=== PATIENT | female | born 1955 | race Caucasian/White ===

== ENCOUNTER → 2016-09-28 13:31 | Outpatient (CLI) | payer BC ==
[~2016-09-28 13:31] MED LIST: DILAUDID2 MG PO; IBUPROFEN200 MG PO; OMEPRAZOLE20 M1 PO; SYNTHROID88 MCG PO; ULTRAM50 MG PO; ZOCOR20 MG PO; ZOFRAN4 MG PO
[2016-10-22 08:37] VITALS: BMI 29.7
== END | disposition home or self-care (01) ==
LOC: D.US 13:31
DX: E06.3 Autoimmune thyroiditis (principal)

== ENCOUNTER → 2016-10-09 09:58 | Outpatient (CLI) | payer BC ==
[2016-10-22 08:37] VITALS: BMI 29.7
== END | disposition home or self-care (01) ==
LOC: D.US 09:58
DX: R10.9 Unspecified abdominal pain (principal)

== ENCOUNTER 2016-10-22 05:21 | Day surgery (SDC) | payer BC ==
[2016-10-20 10:13] LABS: HEMATOCRIT 41.1 % (36.0-48.0); HEMOGLOBIN 14.2 g/dL (12-16); MCH 32.1 pg (26.0-34.0); MCHC 34.5 g/dL (31.0-37.0); MEAN PLATELET VOLUME 9.2 fL (7.4-10.4); RBC 4.42 10x6/uL (4.00-5.40); RDW 12.3 % (11.5-14.5); WBC 5.7 10x3/uL (4.8-10.8)
[~2016-10-22] VITALS: Ht 162.6 cm; Wt 78.5 kg
[~2016-10-22 05:21] MED LIST changes: -DILAUDID2 MG PO; -ZOFRAN4 MG PO
[2016-10-22] MEDS ORDERED: ZOFRAN4 MG PO (08:36)
[2016-10-22 08:37] VITALS: BP 126/76; Ht 162.6 cm; Wt 78.5 kg
[2016-10-22] MEDS ORDERED: DILAUDID2 MG PO (11:35)
--- NOTE | 2016-10-22 14:56 | NUR ---
1400 IV DC WITH CATHER TIP INTACT
--- NOTE | 2016-10-26 11:07 | OP ---
PATIENT NAME: SUMA BLUNT MEDICAL RECORD: [id number] :57 LOCATION:[facility] ADMISSION DATE: SURGEON: DALLAS ORTA, TERESA PACE DATE OF OPERATION: 10/22/2016 Orthopedic Surgery Operative Note PREOPERATIVE DIAGNOSIS: Rotator cuff tear of the right shoulder with impingement syndrome, acromioclavicular arthritis. POSTOPERATIVE DIAGNOSES: Rotator cuff tear of the right shoulder with impingement syndrome, acromioclavicular arthritis, plus adhesive capsulitis. PROCEDURES: 1. Arthroscopic rotator cuff repair. 2. Arthroscopic distal clavicle excision -- 1 cm through separate incision. 3. Arthroscopic subacromial decompression with acromioplasty and bursectomy. 4. Right shoulder manipulation. SURGEON: Teresa Haynes MD. ANESTHESIA: General. INTRAOPERATIVE COMPLICATIONS: None. SUMMARY OF PATHOLOGIC FINDINGS: The patient had severe adhesive capsulitis, full thickness rotator cuff tear, impingement syndrome, acromioclavicular arthritis. OPERATIVE SUMMARY IN DETAIL: After obtaining the appropriate preoperative orthopedic surgery consent as well as anesthetic consultation was taken to the operating room and placed on the operating table in supine position. After general laryngeal mask was administered, the patient was placed in a left lateral decubitus position. All pressure points were well padded to include down leg peroneal pad as well as axillary roll. The patient was held firmly to the operating table using the vacuum pack suction system. The right upper extremity was prepped and draped in a routine sterile fashion. At this point, examination under anesthesia showed the patient did have significant adhesive capsulitis. For this reason, the scapula was stabilized. The shoulder was manipulated first in abduction followed by external rotation, internal rotation, flexion and extension. Having completed this, the arm was held in the Arthrex traction boom at 30 degrees of forward flexion, 30 degrees of abduction with 10 pounds of traction laterally. Arthroscopy was established in the glenohumeral joint from a posterior portal. Anterior portal was established in the anterior safe interval. Diagnostic arthroscopy of the glenohumeral joint showed the patient did have some labral tearing. Obviously, there was a post-manipulation bleeding. This was irrigated. Rotator cuff tearing was noted. Transrotator cuff portal was created to debride the rotator cuff and to begin to decorticate the footprint of the supraspinatus tendon. Having completed this, attention was turned to the subacromial space. While in the subacromial space, a polyp tissue ablation system was utilized to denude the undersurface of the acromion of all soft tissue elements. A 5-0 barrel bur was used to perform acromioplasty at the level of acromioclavicular joint. Through an arthroscopic anterior portal, the 5-0 barrel bur was used to perform a distal clavicle excision to debride 1 cm of the distal clavicle as it had eburnated arthritis on it. Attention was then OPERATIVE REPORT [id number] SUMA BLUNT returned to the rotator cuff. The area rotator cuff reapproximation was further decorticated. A single inverted #2 FiberTape was passed and anchored laterally using a 5.5 SwiveLock from Arthrex. Having completed this, arthroscopy portals were closed in routine interrupted fashion using 4-0 Prolene. Sterile dressings were applied. The patient was awakened, taken to recovery in stable condition. All final needle and sponge counts were correct. TRANSINT:[id number] Voice Confirmation ID: [id number] DOCUMENT ID: [id number] DALLAS ORTA, TERESA PACE at 1107 CC: [id number] DICTATION DATE: 10/22/16 164 PUNCH MACHINE HAND: 10/22/162037 [facility] 10/22/16 [address] [place] [address]
== END 2016-10-22 14:30 | disposition home or self-care (01) ==
LOC: D.OPS 05:21 → D.PAN 12:15 → D.OPS 12:15
PROVIDERS: Anesthesiology
DX: M75.121 Complete rotator cuff tear or rupture of right shoulder, not specified as traumatic (principal); M75.41 Impingement syndrome of right shoulder; M13.811 Other specified arthritis, right shoulder; M75.01 Adhesive capsulitis of right shoulder

== ENCOUNTER → 2016-11-30 16:34 | Outpatient (CLI) | payer BC ==
[2016-10-22 08:37] VITALS: BMI 29.7
[~2016-11-30 16:34] MED LIST changes: +DILAUDID2 MG PO; +ZOFRAN4 MG PO
== END | disposition home or self-care (01) ==
LOC: D.MAMMO 11-02 15:30
DX: Z12.31 Encounter for screening mammogram for malignant neoplasm of breast (principal)

== ENCOUNTER 2017-01-04 11:06 | Day surgery (SDC) | payer BC ==
[~2017-01-04] VITALS: Ht 162.6 cm; Wt 74.8 kg
[~2017-01-04 11:06] MED LIST changes: +NALFON400 MG PO; +SYNTHROID112 MCG PO; -SYNTHROID88 MCG PO
[2017-01-04 12:12] VITALS: Ht 162.6 cm; Wt 74.8 kg
[2017-01-04 12:20] LABS: HEMATOCRIT 40.8 % (36.0-48.0); HEMOGLOBIN 13.7 g/dL (12-16); MCH 30.8 pg (26.0-34.0); MCHC 33.6 g/dL (31.0-37.0); MCV 91.7 fL (80.0-100.0); MEAN PLATELET VOLUME 9.8 fL (7.4-10.4); RBC 4.45 10x6/uL (4.00-5.40); RDW 12.7 % (11.5-14.5); WBC 5.5 10x3/uL (4.8-10.8)
[2017-01-04] MEDS ORDERED: DILAUDID2 MG PO (15:51)
--- NOTE | 2017-01-06 13:29 | OP ---
PATIENT NAME: SUMA BLUNT MEDICAL RECORD: [id number] :57 LOCATION:[facility] ADMISSION DATE: SURGEON: TERESA HAYNES MD DATE OF OPERATION: 01/04/2017 Orthopedic Surgery Operative Note PREOPERATIVE DIAGNOSIS: Adhesive capsulitis of the left shoulder. POSTOPERATIVE DIAGNOSIS: Adhesive capsulitis of the left shoulder. PROCEDURE: Manipulation under anesthesia, left shoulder. SURGEON: Teresa Haynes MD ANESTHESIA: TIVA. INTRAOPERATIVE COMPLICATIONS: None. SUMMARY OF PATHOLOGIC FINDINGS: The patient had excellent release with manipulation. OPERATIVE SUMMARY IN DETAIL: After obtaining the appropriate preoperative orthopedic surgery consent as well as anesthetic consultation, evaluation and clearance, the patient was brought to the operating room and placed in the operating table in supine position. After adequate general TIVA anesthesia was administered, the left scapula was stabilized. The shoulder was manipulated first in abduction, followed by external rotation, internal rotation, forward flexion and extension. This resulted in excellent release of adhesions about the shoulder. Having completed this, the patient was awakened and taken back to outpatient in stable condition. TRANSINT:[id number] Voice Confirmation ID: [id number] DOCUMENT ID: [id number] TERESA HAYNES MD at 1329 CC: [id number] DICTATION DATE: 01/04/171943 EDITOR AT LARGE: 01/05/17 0530 [facility] 01/04/17 [id number] [place] [address]
== END 2017-01-04 17:30 | disposition home or self-care (01) ==
LOC: D.OPS 11:06 → D.PAN 14:00 → D.OPS 14:00
PROVIDERS: Anesthesiology
DX: M75.01 Adhesive capsulitis of right shoulder (principal); M75.121 Complete rotator cuff tear or rupture of right shoulder, not specified as traumatic; M25.511 Pain in right shoulder; F17.200 Nicotine dependence, unspecified, uncomplicated; K21.9 Gastro-esophageal reflux disease without esophagitis; E03.9 Hypothyroidism, unspecified; Z01.812 Encounter for preprocedural laboratory examination

== ENCOUNTER → 2018-02-25 17:20 | Outpatient (CLI) | payer BC ==
[2017-01-04 12:12] VITALS: BMI 28.4
== END | disposition home or self-care (01) ==
LOC: D.LABREF 17:20
DX: R31.9 Hematuria, unspecified (principal)

== ENCOUNTER → 2018-03-04 12:59 | Outpatient (CLI) | payer BC ==
[2017-01-04 12:12] VITALS: BMI 28.4
== END | disposition home or self-care (01) ==
LOC: D.CT 12:59
DX: R31.21 Asymptomatic microscopic hematuria (principal)

== ENCOUNTER 2018-03-16 09:20 | Day surgery (SDC) | payer BC ==
[2018-03-15 14:17] LABS: BASOPHILS 0.3 % (0-2); EOSINOPHILS 1.7 % (0-7); HEMATOCRIT 38.5 % (36.0-48.0); HEMOGLOBIN 13.4 g/dL (12-16); IMMATURE GRANULOCYTES 0.2 % (0-5); LYMPHOCYTES 33.6 % (15-50); MCH 30.9 pg (26.0-34.0); MCHC 34.8 g/dL (31.0-37.0); MCV 88.9 fL (80.0-100.0); MEAN PLATELET VOLUME 9.1 fL (7.4-10.4); MONOCYTES 7.1 % (2-11); NEUTROPHILS 57.1 % (40-80); PLATELET COUNT 231 10x3/uL (130-400); RBC 4.33 10x6/uL (4.00-5.40); RDW 13.5 % (11.5-14.5); WBC 6.5 10x3/uL (4.8-10.8)
[2018-03-15 14:37] LABS: CALC OSMOLALITY 282 mosm/kg (275-300); CALCIUM 8.8 mg/dL (8.5-10.1); CARBON DIOXIDE 28.2 mmol/L (21.0-32.0); CHLORIDE - SERUM 104 mmol/L (98-107); CREATININE - SERUM 0.7 mg/dL (0.6-1.3); GLUCOSE 97 mg/dL (74-106); POTASSIUM - SERUM 3.8 mmol/L (3.5-5.1); SODIUM 141 mmol/L (136-145); UREA NITROGEN 19 mg/dL (7-18); eGFR NON AFRICAN AMERICAN 90 mL/min (90-120)
[~2018-03-16] VITALS: Ht 162.6 cm; Wt 80.7 kg
--- NOTE | ~2018-03-16 | OP ---
PATIENT NAME: SUMA BLUNT MEDICAL RECORD: [id number] :57 LOCATION:[facility] ADMISSION DATE: SURGEON: FAZAL OJEDA MD DATE OF OPERATION: 03/16/2018 SURGEON: Fazal Ojeda MD. ANESTHESIA: TIVA by Ignacio Castaneda. DIAGNOSES: Microscopic hematuria, interstitial cystitis. PROCEDURE: Cystoscopy, examination under anesthesia, intravesical Rimso 50 installation. FINDINGS: On cystoscopy, single ureteral orifices bilaterally. No bladder tumors. No mesh graft erosion into the bladder. Diffuse bladder inflammation. On examination under anesthesia, an intact vaginal mucosa. Scar tissue in the anterior vaginal wall. No graft extrusion. BLOOD LOSS: None. CLINICAL HISTORY: This is a 62-year-old female, who was a smoker. She was referred for microscopic hematuria. She herself also complains of urinary urge incontinence as well as frequency. Fifteen years ago in [place], [place], she had a hysterectomy combined with a cystocele and rectocele repair. She has to go very frequently in the daytime every 2 hours. There is nocturia times zero. She also has dyspareunia. She was a smoker, 1 pack per day for 20 years, quit in the year 1999. When I examined her, she had quite significant tenderness on the anterior vaginal wall in the trigonal region. I felt some irregularity here, which I thought might be the cystocele repair with mesh. It was difficult to examine the patient. Therefore, I will perform the examination under anesthesia to get a better picture. She does have consent for removal of extruded vaginal mesh if there is vaginal mesh exposure. She is allergic to CODEINE. I gave her Ancef contour band saw operator vertical to the OR. DESCRIPTION OF PROCEDURE: The patient was given IV sedation. She was placed in the dorsal lithotomy position, prepped and draped. A 17-Somali cystoscope with 30-degree lens was used for visualization. No graft exposure or erosion was seen. She has diffuse bladder inflammation consistent with interstitial cystitis. No bladder tumors were seen. The bladder was then emptied through the scope. The scope was then placed in the vagina for vaginoscopy. I could find no areas of exposed vaginal mesh. A weighted speculum was then placed to hold the posterior vaginal wall down. On examining the anterior vaginal wall carefully, I could see that the irregularity that I was feeling in the office was just irregular scar tissue from her previous vaginal surgery. The scar itself is white, but intact. No mesh was visible at all. Therefore, we are dealing primarily with interstitial cystitis and the trigonal tenderness that we can have with interstitial cystitis. A 16-Somali red rubber catheter was inserted into the bladder and the bladder was completely emptied. Through the catheter using a catheter tip syringe, we inserted the 50 mL of Rimso-50 solution into the bladder. Once this solution was in the bladder, the catheter was removed, leaving the solution in the bladder. The patient will hold the solution in for 15 minutes and then void it out. She will come back to my office next week to get treatment #2. OPERATIVE REPORT [id number] SUMA BLUNT TRANSINT:[id number] Voice Confirmation ID: [id number] DOCUMENT ID: [id number] FAZAL OJEDA MD at 1535 CC: [id number] DICTATION DATE: 03/16/18 1344 FILING OR REGISTRY CLERK: 03/16/18 1457 PRE [facility] [address] [place] [address]
[2018-03-16 10:09] VITALS: BP 157/68; Ht 162.6 cm; Wt 80.7 kg
== END 2018-03-16 15:30 | disposition home or self-care (01) ==
LOC: D.OPS 09:20 → D.PAN 03-17 09:15 → D.OPS 03-17 09:15
PROVIDERS: Anesthesiology
DX: N30.11 Interstitial cystitis (chronic) with hematuria (principal); Z01.812 Encounter for preprocedural laboratory examination

== ENCOUNTER → 2018-10-27 10:32 | Outpatient (CLI) | payer BC ==
[2018-03-16 10:09] VITALS: BMI 30.6
== END | disposition home or self-care (01) ==
LOC: D.MRI 10:32 → D.CT 10:32 → D.MRI 11:00
PROVIDERS: ATTEND Clinical Nurse Specialist Family Health
DX: M25.512 Pain in left shoulder (principal); R91.8 Other nonspecific abnormal finding of lung field

== ENCOUNTER 2018-11-21 06:50 | Day surgery (SDC) | payer BC ==
[2018-11-17 12:19] LABS: HEMATOCRIT 39.4 % (36.0-48.0); HEMOGLOBIN 13.8 g/dL (12-16); MCH 31.5 pg (26.0-34.0); MEAN PLATELET VOLUME 9.4 fL (7.4-10.4); RBC 4.38 10x6/uL (4.00-5.40); RDW 13.4 % (11.5-14.5); WBC 5.1 10x3/uL (4.8-10.8)
[2018-11-17 12:24] LABS: CALC OSMOLALITY 275 mosm/kg (275-300); CARBON DIOXIDE 26.9 mmol/L (21.0-32.0); CHLORIDE - SERUM 101 mmol/L (98-107); CREATININE - SERUM 0.7 mg/dL (0.6-1.3); GLUCOSE 104 mg/dL (74-106); POTASSIUM - SERUM 4.1 mmol/L (3.5-5.1); SODIUM 136 mmol/L (136-145); UREA NITROGEN 23 mg/dL (7-18); eGFR NON AFRICAN AMERICAN 90 mL/min (90-120)
[~2018-11-21] VITALS: Ht 162.6 cm; Wt 78.9 kg
--- NOTE | ~2018-11-21 | OP ---
PATIENT NAME: SUMA BLUNT MEDICAL RECORD: [id number] :57 LOCATION:[facility] ADMISSION DATE: SURGEON: TERESA HAYNES MD DATE OF OPERATION: 11/21/2018 PREOPERATIVE DIAGNOSES: Impingement syndrome, acromioclavicular arthritis, and adhesive capsulitis. POSTOPERATIVE DIAGNOSES: Impingement syndrome, acromioclavicular arthritis, and adhesive capsulitis. PROCEDURES: 1. Shoulder arthroscopy with arthroscopic distal clavicle excision done through separate incision - 1 cm. 2. Arthroscopic subacromial decompression with acromioplasty and bursectomy. 3. Shoulder manipulation under anesthesia. SURGEON: Teresa Haynes MD ELECTROLYSIS OPERATOR: RAJEEV King INTRAOPERATIVE COMPLICATIONS: None. SUMMARY OF PATHOLOGIC FINDINGS: The patient was indeed found to have adhesive capsulitis as seen by the intra-articular blood after the manipulation as well as adhesive fibers that had been released. The patient did have a downward sloping acromion and acromioclavicular arthritis. OPERATIVE SUMMARY IN DETAIL: After obtaining the appropriate preoperative orthopedic surgery consent as well as anesthetic consultation, evaluation and clearance, the patient was brought to the operating room and placed on the operating room table in supine position. After adequate general laryngeal mask airway administered, the patient was placed in a right lateral decubitus position. All pressure points were well padded to include down leg peroneal pad as well as axillary roll. The patient was held firmly to the operating table using the vacuum pack suction system. At this point, the scapula was stabilized. The shoulder was first manipulated in abduction with excellent release of adhesions. It was then manipulated in external rotation again with excellent release of the adhesions. Overhead flexion as well as internal rotation were also manipulated. The arm was then placed in the Arthrex traction boom at 30 degrees of forward flexion and 30 degrees of abduction with 10 pounds of traction laterally. Arthroscopy was established in the glenohumeral joint for posterior portal. Anterior portal was established in the anterior safe interval. Diagnostic arthroscopy did reveal the patient's intra-articular blood this was all removed with a suction shaver. Labrum and bicipital labral junction as well as the biceps tendon were in fair condition. Attention was then turned to the subacromial space. While on the subacromial space, Emeigh tissue ablation system was used to denude the undersurface of the acromion of all soft tissue elements and then a 5.0 barrel bur was used to perform acromioplasty at the level of acromioclavicular joint. Having completed this, through a separate anterior arthroscopic portal, distal clavicle was excised for 1 cm. The residual of the subacromial bursa was taken down anteriorly, laterally, posteriorly as well as superiorly. The rotator cuff was in overall good condition. At this point, arthroscopy portals were closed in routine interrupted fashion by Kerwin Tucker. Sterile dressings were applied. The OPERATIVE REPORT [id number] SUMA BLUNT patient was awakened and taken to the recovery room in stable condition. All final needle and sponge counts were correct. TRANSINT:[id number] Voice Confirmation ID: [id number] DOCUMENT ID: [id number] DALLAS ORTA, TERESA PACE CC: [id number] DICTATION DATE: 11/24/18 0940 ROUGH AND TRUING MACHINE OPERATOR: 11/24/18 1022 [facility] 11/21/18 [facility] [address] [place] [address]
[~2018-11-21 06:50] MED LIST changes: +LISINOPRIL20 MG PO
[2018-11-21 07:33] VITALS: BP 103/65; Ht 162.6 cm; Wt 78.9 kg
--- NOTE | 2018-11-21 11:03 | NUR ---
PRE OP BP 160/98
--- NOTE | 2018-11-21 11:47 | NUR ---
NO ORDERS POST OP AND NO RX FOR PAIN MEDS
--- NOTE | 2018-11-21 12:19 | NUR ---
IV REMOVED CATHETER INTACT. DRESSING APPLIED
--- NOTE | 2018-11-21 12:45 | NUR ---
INSTUCTIONS GIVEN PT IN A SLING MEDICATED PRIOR TO GOING HOME
== END 2018-11-21 12:47 | disposition home or self-care (01) ==
LOC: D.OPS 06:50 → D.PAN 07:30 → D.OPS 09:00
PROVIDERS: Anesthesiology; ATTEND Orthopaedic Surgery
DX: M75.42 Impingement syndrome of left shoulder (principal); M19.012 Primary osteoarthritis, left shoulder; M75.02 Adhesive capsulitis of left shoulder

== ENCOUNTER 2020-12-30 10:00 | Outpatient (CLI) | payer BC ==
[2018-11-21 07:33] VITALS: BMI 29.9
== END 2020-12-30 23:59 | disposition home or self-care (01) ==
LOC: D.MAMMO 10:00
PROVIDERS: ATTEND Family Medicine
DX: Z12.31 Encounter for screening mammogram for malignant neoplasm of breast (principal)